=== PATIENT | female | born 1950 | race Caucasian/White ===

== ENCOUNTER 2016-10-10 07:08 | Day surgery (SDC) | payer BC ==
[~2016-10-10] VITALS: Ht 157.5 cm; Wt 98.3 kg
[2016-10-10] VITALS (10 sets, daily range): BP systolic 86–119; BP diastolic 41–56; PULSE 58–64; RESP 15–25; Ht 157.5 cm; Wt 98.3 kg
--- NOTE | 2016-10-10 06:36 | PREOPHP ---
DATE OF ADMISSION: 10/10/2016 CHIEF COMPLAINT: "I'm having difficult seeing with my eyes. Right is much worse than the left." HISTORY OF PRESENT ILLNESS: This is 65-year-old lady who has been having pain with progressive loss of vision in both eyes, right worse than the left. It has gotten to the point that it is interferi ng with her activities of daily living. It has gotten to the point that she is having difficulty wi th seeing far away, and she requests surgery to improve this condition. PAST MEDICAL HISTORY: Significant for high blood pressure, back pain, history of ulcers, and arthri tis. ALLERGIES: SHE IS ALLERGIC TO: 1. LATEX. 2. SULFA. 3. PENICILLIN. MEDICATIONS: Include: 1. Hydrochlorothiazide. 2. Vitamin D plus calcium. 3. Ibuprofen. PAST SURGICAL HISTORY: Significant for a cholecystectomy and a removal of lumps. REVIEW OF SYSTEMS: She denies having any fever, chills, nausea, vomiting, diarrhea, constipation, s hortness of breath, chest pain, dyspnea, dysuria, weakness or numbness in the extremities. PHYSICAL EXAMINATION: She is a well-developed, well-nourished lady in no acute distress. HEAD: Normocephalic, atraumatic. EARS, NOSE, AND THROAT: Within normal limits. EYES: Best corrected visual acuity is calculated in the right 20/50, in the left almost 20/40. Ant erior segment exam essentially within normal limits. There is no afferent pupillary defect. The di lated examination shows almost mature cataract in the right and 3+ nuclear sclerosis on the left. The intraocular pressure is 24. Funduscopic examination shows normal macular disc, vessels, and per iphery in the left eye. The right eye is hazy to evaluate, but it seems to be within normal limits. NECK: Supple. No lymphadenopathy, normal thyroid. LUNGS: Clear to auscultation and percussion. HEART: Regular rate and rhythm. ABDOMEN: Soft, nontender, nondistended. Positive bowel sounds. EXTREMITIES: Essentially normal with no cyanosis, clubbing, or edema. NEUROLOGIC: Essentially within normal limits. IMPRESSION: 1. Cataracts. 2. Hypertension. 3. Status post cholecystectomy. RECOMMENDATIONS: Risks, hazards, complications, and alternatives were explained which included infe ction, bleeding, loss of vision, loss of eye, from anesthesia, need for second surgery, retina l detachment, irregular pupil, irregular cornea, ptosis, globe perforation, and diplopia. The patie nt understood these risks and would like to go for the surgery. Dictated By: HELENA MALDONADO/BILL Conf#: [id number] DID#: [id number]
[~2016-10-10 07:08] MED LIST: ACETAZOLAMIDE (SR) 500 MG CAP PO ONE; BALANCED SALT SOLN 500 ML OPH IRRIG ONE; BP MED PO; CIPROFLOXACIN 0.3% 2.5 ML OPH OPER SCH; CYCL-319 PO; GLUCOSAMINE PO; HYDROCHLOROTHIAZIDE PO; IBUPROFEN; LIDOCAINE 3.5% GEL TUBE OPER SCH; NAPR-260 PO; NAPROXEN PO; OMEPRAZOLE PO; PHENYLephrine 10% 5 ML OPH OPER SCH; PHENYLephrine 2.5% 15 ML OPH OPER SCH; PROPARACAINE 0.5% 15 ML OPH OPER SCH; TROPICAMIDE 1% 15 ML OPH OPER SCH; VITAMINS
[2016-10-10] MEDS ORDERED: CARBACHOL 0.01% 1.5 ML OPH INJ ONE (08:42)
[2016-10-10] MEDS ORDERED: GENTAMICIN 80 MG INJ ONE (08:42)
[2016-10-10] MEDS ORDERED: LIDOCAINE 1% (MPF) 10 ML INJ ONE (08:42)
[2016-10-10] MEDS ORDERED: EPINEPHrine 1 MG INJ ONE (08:42)
[2016-10-10] MEDS ORDERED: DEXAMETHASONE 4 MG/ML 1 ML INJ ONE (08:52)
[2016-10-10] MEDS ORDERED: SODIUM HYALURONATE 14 MG/ML SYG ONE (08:59)
[2016-10-10] MEDS ORDERED: LIDOCAINE 1% (MPF) 10 ML INJ INJ ONE (09:00)
[2016-10-10] MEDS ORDERED: SODIUM HYALURONATE 10 MG/ML SYG IO ONE (09:00)
[2016-10-10] MEDS ORDERED: TROPICAMIDE 1% 15 ML OPH OPER SCH (09:00)
[2016-10-10] MEDS ORDERED: DEXAMETHASONE 4 MG/ML 1 ML INJ INJ ONE (09:00)
[2016-10-10] MEDS ORDERED: GENTAMICIN 80 MG INJ INJ ONE (09:00)
[2016-10-10] MEDS ORDERED: FENTAnyl 50 MCG/ML VIAL ONE (09:15)
[2016-10-10] MEDS ORDERED: MIDAZOLAM 1 MG/ML 2 ML INJ ONE (09:15)
[2016-10-10] MEDS ORDERED: IRBE150T19 PO (09:18)
[2016-10-10] MEDS ORDERED: FENTAnyl 50 MCG/ML VIAL IV PRN (09:30)
[2016-10-10] MEDS ORDERED: OXYCODONE/ACETAMINOPHEN (5/325) TAB PO PRN (09:30)
[2016-10-10] MEDS ORDERED: PROCHLORPERAZINE 10 MG INJ IV PRN (09:30)
[2016-10-10] MEDS ORDERED: ONDANSETRON 4 MG INJ IV PRN (09:30)
[2016-10-10] MEDS ORDERED: HYDROmorphONE (0.2 MG/ML) 10ML SYG IV PRN (09:30)
[2016-10-10] MEDS ORDERED: TRYPAN BLUE 0.5 ML SYG IO ONE (10:30)
[2016-10-10] MEDS ORDERED: ACETAZOLAMIDE 250 MG TAB PO ONE (10:30)
--- NOTE | 2016-10-10 16:50 | OPR ---
DATE OF OPERATION: 10/10/2016 PREOPERATIVE DIAGNOSIS: Mature cataract of the right eye. POSTOPERATIVE DIAGNOSIS: Mature Cataract of the right eye. SURGEON: HELENA SHOEMAKER MD. POLISHER BALANCE SCREWHEAD: None. ANESTHESIOLOGIST: CHARLES CASH MD OPERATION PERFORMED: Extracapsular cataract extraction with intraocular lens implantation using phacoemulsification technique using alcohol. Lens: [id number], 17.5 diopters, right eye. COMPLICATIONS: None. ESTIMATED BLOOD LOSS: Less than 1 Ml. ANESTHESIA: 1% lidocaine subconjunctival. INDICATIONS FOR PROCEDURE: This is a 65-year-old lady who has been having loss of vision in both eyes. Right is much, much worse than the left. It has gotten to the point that it interferes with her activities of daily living. She was having difficulty focusing both eyes together. The right eye can basically see only hand motion at best count finger. DESCRIPTION OF PROCEDURE: The patient was seen in the preop holding area and the consent was reiterated again same as at the office. The patient accepted the risks and wanted to go ahead with the surgery. The patient was taken to the operating room in stable condition, was placed horizontal and was monitored throughout the whole case. The patient was then prepped and draped in a sterile fashion for surgery and then a wire lid speculum was placed in the conjunctival fornices. Rdoerick's peritomy was done from 10 o'clock to 12 o' clock position and then hemostasis was achieved with cautery. With the use of the [address] [place] blade, a scleral groove was made superiorly which was anterior shelved forward to the clear cornea. Then with the use of a supersharp, paracentesis was made at 3 o'clock position. Then with use of a keratome, the anterior chamber was entered through the superior incision. Healon was injected into the anterior chamber and then trypan blue was used to paint the anterior capsule of the cataract. More Healon was injected into the anterior chamber and then with use of a cystotome and Utrata, the capsulorrhexis was performed in a curvilinear fashion. Next BSS balanced salt solution on the cannula was used for hydrodissection and hydrodelineation. Phaco tip was entered into the anterior chamber and the nucleus was phacoemulsified using a divide and conquer technique using a second instrument. Next the cortical material was removed and the posterior capsule was polished with an irrigation aspiration unit. Next, the Healon was reinjected into the anterior chamber and the lens was folded and placed into the capsular bag without any complication. The haptics were placed at 3 o'clock and 9 o'clock position. Next, the Healon was taken out of the eye with irrigation aspiration unit and then a 10-0 nylon suture was used for closure of the superior wound and the wound integrity was checked and there was no leakage noted. Subconjunctival injection of Ancef and Decadron was given and then the superior conjunctiva was cauterized with a cautery. The patient tolerated the procedure well. Actually, the subconjunctival injection was gentamicin and Decadron since the patient is ALLERGIC TO PENICILLIN. There were no complications. Wire lid speculum and drapes were removed. Topical Ocuflox was placed on the eye. The eye was patched and shield placed over it. The patient tolerated the procedure well. There were no complications. The patient was taken to recovery room in stable condition. Dictated By: HELENA MALDONADO/BILL Conf#: [id number] DID#: [id number] MOON
== END 2016-10-10 11:45 | disposition home or self-care (01) ==
LOC: SDS 07:08
PROVIDERS: ATTEND Ophthalmology
DX: H26.8 Other specified cataract (principal); I10 Essential (primary) hypertension
CPT/HCPCS: 66984; J0171; J1100; J1170; J1580; J2250; J3010; V2630